=== PATIENT | female | born 1985 | race Hispanic/Latino ===

== ENCOUNTER 2022-02-18 04:54 | Emergency (ER) | payer OTHER ==
[~2022-02-18] VITALS: Ht 152.4 cm; Wt 64.9 kg
[2022-02-18 05:13] VITALS: BP 118/80
[2022-02-18 05:26] LABS: BASOPHILS % (AUTO) 0.2 % (0.0-5.0); EOSINOPHILS % (AUTO) 0.3 % (0.0-8.0); HEMATOCRIT 42.8 % (36-48); LYMPHOCYTES % (AUTO) 22.4 % (21.0-51.0); MEAN CORPUSCULAR HEMOGLOBIN 29.5 pg (27.0-33.0); MEAN CORPUSCULAR HGB CONC 33.9 g/dL (32.0-36.0); MEAN CORPUSCULAR VOLUME 87.2 fL (79-99); MONOCYTES % (AUTO) 6.8 % (3.0-13.0); NEUTROPHILS % (AUTO) 69.9 % (40.0-77.0); PLATELET COUNT (AUTO) 279 K/uL (130-400); RED BLOOD CELL COUNT(AUTO) 4.91 MIL/uL (4.00-5.50); RED CELL DISTRIBUTION WIDTH 12.7 % (11.0-15.5); WHITE BLOOD COUNT (AUTO) 10.4 K/uL (4.8-10.8)
[2022-02-18 05:43] LABS: CREATININE 0.8 mg/dL (0.5-1.5); POTASSIUM 3.5 mmol/L (3.5-5.1)
[2022-02-18 05:48] LABS: ALBUMIN 3.9 g/dL (3.5-5.0); BILIRUBIN,TOTAL 0.3 mg/dL (0.2-1.0); TOTAL PROTEIN, SERUM 8.7 g/dL (6.0-8.3)
[2022-02-18] MEDS ORDERED: MORPHINE 4 MG SYG IVP ONE (06:30)
[2022-02-18] MEDS ORDERED: ONDANSETRON 4MG INJ IVP ONE (06:30)
[2022-02-18] MEDS ORDERED: KETOROLAC 15MG/ML VIAL (15MG/ML) IV ONE (06:30)
[2022-02-18] MEDS ORDERED: ACET-2079 PO (06:48)
[2022-02-18] MEDS ORDERED: IBUP-2070 PO (06:48)
[2022-02-18] MEDS ORDERED: HYDROMORPHONE 1 MG INJ IVP ONE (07:00)
== END 2022-02-18 07:02 | disposition home or self-care (01) ==
LOC: EDH 04:54
DX: K80.50 Calculus of bile duct without cholangitis or cholecystitis without obstruction (principal)
CPT/HCPCS: 36415; 76705; 80053; 82150; 85025; 96374; 96375; 99284; J1170; J1885; J2270; J2405